=== PATIENT | male | born 1955 | race Caucasian/White ===

== ENCOUNTER 2021-07-26 08:35 | Outpatient (CLI) | payer MEDICARE | END 2021-07-26 08:36 | disposition home or self-care (01) | LOC: CSHMRI 08:35 | PROVIDERS: ATTEND Nurse Practitioner Family | DX: M48.061 Spinal stenosis, lumbar region without neurogenic claudication (principal); M47.816 Spondylosis without myelopathy or radiculopathy, lumbar region | CPT/HCPCS: 72110; 72148 ==